=== PATIENT | female | born 1960 | race Caucasian/White ===

== ENCOUNTER 2019-03-15 06:14 | Day surgery (SDC) | payer OTHER ==
[2019-03-14 10:16] VITALS: BMI 28.3
[2019-03-15 07:28] LABS: URINE APPEARANCE CLEAR; URINE BILIRUBIN NEGATIVE (NEGATIVE); URINE COLOR YELLOW; URINE GLUCOSE (UA) NEGATIVE (NEGATIVE); URINE KETONE NEGATIVE (NEGATIVE); URINE LEUK ESTERASE NEGATIVE (NEGATIVE); URINE NITRITE NEGATIVE (NEGATIVE); URINE PROTEIN NEGATIVE (NEGATIVE); URINE UROBILINOGEN 0.2 mg/dL (0.2-1.0)
[2019-03-15] MEDS ORDERED: BUPIVACAINE HCL/PF 0.5% (5 MG/ML) 30 ML VIAL IJ ONE ×4 (07:34→08:24)
[2019-03-15 07:38] LABS: INR 1.01 (0.83-1.09); PROTHROMBIN TIME (PATIENT) 11.9 SEC (9.7-13.0)
[2019-03-15 07:41] LABS: ACTIVATED PTT 35.6 SECONDS (25.2-36.5)
[2019-03-15] MEDS ORDERED: SUCCINYLCHOLINE CHLORIDE 200 MG/10 ML SYRINGE ONE (07:50)
[2019-03-15] MEDS ORDERED: PROPOFOL 20 ML ONE ×3 (07:50)
[2019-03-15] MEDS ORDERED: MIDAZOLAM HCL 2 MG/2 ML SINGLE DOSE VIAL ONE (07:51)
[2019-03-15] MEDS ORDERED: LIDOCAINE HCL/PF 2% SDV 5ML VIAL ONE (07:52)
[2019-03-15] MEDS ORDERED: LIDOCAINE HCL 2% JELLY (5 ML/TUBE) ONE (07:53)
[2019-03-15] MEDS ORDERED: ONDANSETRON 4 MG/2 ML VIAL ONE (07:54)
[2019-03-15] MEDS ORDERED: KETOROLAC TROMETHAMINE 30 MG/1 ML VIAL ONE (07:54)
[2019-03-15] MEDS ORDERED: ceFAZolin SODIUM 1 GM VIAL ONE (07:54)
[2019-03-15] MEDS ORDERED: DEXAMETHASONE SOD PHOSPHATE 4 MG/1 ML VIAL ONE (07:54)
--- NOTE | 2019-03-15 08:06 | HP ---
[facility] - Chief Complaint Chief Complaint: right knee pain - Past Medical History Allergies/Adverse Reactions: Allergies Allergy/AdvReac Type Severity Reaction Status Date / Time No Known Drug Allergies Allergy Verified 03/15/19 07:20 - Current Medications Current Medications: Home Medications Medication Instructions Recorded Citalopram Hydrobromide 10 mg PO DAILY 03/14/19 [Citalopram HBr] Levothyroxine [Synthroid -] 112 mcg PO DAILY 03/14/19 Multivitamins [Multivit ([facility] 1 tab PO DAILY 03/14/19 Formulary)] Rosuvastatin Calcium [Crestor] 20 mg PO HS 03/14/19 Triamterene/Hydrochlorothiazid 1 each PO UTDICT 03/14/19 [Triamterene-Hctz 37.5-25 mg Tb] Tumeric 1 tab PO DAILY 03/14/19 Oxycodone HCl/Acetaminophen 1 tab PO Q6H #20 tablet MDD 4 03/15/19 [Percocet 5-325 mg Tablet] [facility] Physical Exam - Physical Examination Vital Signs: Vital Signs Period Temp Pulse Resp BP Sys/Daly Pulse Ox Last 24 Hr 97.5 F 62 20 141/85 98 General Appearance: Well Nourished, Well Developed, Alert & Oriented x3 ENT: Clear Lung: Normal air movement Heart: Regular rate & rhythm Extremities: Other (right knee- + swelling, + ttp, decr rom, + mcmurrays, nvi, MRI + mt) Neurological: Intact, Alert, Oriented [facility] Impression/Plan - Impression/Plan Impression: right knee internal derangement Operative Procedure: right knee arthroscopy Date to be Performed: 03/15/19
[2019-03-15] MEDS ORDERED: LIDOCAINE HCL 1%, 10 MG/ML (20ML VIAL) ONE (08:15)
[2019-03-15] MEDS ORDERED: GLYCOPYRROLATE 0.2 MG/1 ML VIAL ONE (08:24)
[2019-03-15] MEDS ORDERED: LIDOCAINE 1%-EPI 1:100,000 30 ML MDV IJ ONE (08:24)
[2019-03-15] MEDS ORDERED: ONDANSETRON 4 MG/2 ML VIAL IVPUSH PRN (08:46)
[2019-03-15] MEDS ORDERED: PROMETHAZINE HCL 25 MG/1 ML VIAL IVPUSH PRN (08:46)
[2019-03-15] MEDS ORDERED: oxyCODONE HCL 5 MG TABLET PO PRN ×2 (08:46)
[2019-03-15 11:26] VITALS: TEMP 98
[2019-03-15 11:29] VITALS: BP 138/80; PULSE 65
--- NOTE | 2019-03-15 12:49 | OP ---
Operative Note - Note: Operative Date: 03/15/19 ([facility]) Pre-Operative Diagnosis: right knee internal derangement Operation: right knee arthroscopy with PMM Post-Operative Diagnosis: Same as Pre-op Surgeon: Kory Ramirez Flagger: Juventino Reyes Anesthesia: General, Local Specimens Removed: shavings Estimated Blood Loss (mls): 5 Operative Report Dictated: Yes
--- NOTE | 2019-03-15 16:38 | OP ---
DATE OF OPERATION: 03/15/2019 PREOPERATIVE DIAGNOSIS: Internal derangement, right knee. POSTOPERATIVE DIAGNOSIS: Internal derangement, right knee. PROCEDURE: Arthroscopy, right knee, partial medial meniscectomy, and chondroplasty of medial femoral condyle. SURGICAL ATTENDING: Kory Ramirez MD ATHLETIC SCOUT: Juventino Reyes MD ANESTHESIA: General. CLOSURE: 4-0 nylon. COMPLICATIONS: None. CONDITION: To recovery room in stable condition. DESCRIPTION OF PROCEDURE: Patient was taken to the operating room on March 15, 2019. General anesthesia with LMA was administered by the anesthesiologist. Right lower extremity was prepped and draped in the usual sterile fashion. The medial and lateral infrapatellar portal sites were infiltrated with 1% Xylocaine with epinephrine. Both portals were then made with 15 blade followed by blunt trocar. The scope was placed in the lateral infrapatellar port up to suprapatellar pouch. Pouch was visualized to be clean. The medial and lateral gutters were visualized to be clean. The undersurface of the patella and trochlea were visualized to be intact. With valgus stress on the knee, the medial compartment was entered. The medial meniscus was visualized and probed and found to have a complex tear of its posterior horn, which was debrided back to smooth, stable meniscal tissue using meniscal biter and arthroscopic shaver. Medial femoral condyle was run and found to have slight grade 2 changes, and the loose articular cartilage was debrided using a shaver. Medial tibial plateau was found to be intact. At 90 degrees, the ACL was visualized and probed and found to be intact. In a figure-4 position, lateral compartment was entered. Lateral meniscus was visualized and probed and found to be intact. Lateral and femoral condyles were found to be intact as was the lateral tibial plateau. The knee was irrigated with copious amounts of irrigation. The portal was closed using 4-0 nylon. Prior to closure, 20 mL of 0.5% Marcaine was infused into the knee for postoperative analgesia. A sterile pressure dressing was placed over the knee. The patient was awakened from anesthesia and transferred to recovery in stable condition. No complications. Estimated blood loss negligible. Key [id number]
--- NOTE | 2019-03-18 17:48 | PATH ---
Surgical Pathology Report Patient Name: LIVE WILSON [facility]. Rec. #: [id number] /Age/Gender: 1960 (Age: 58) / F Account: [id number] Location: [facility] Taken: 03/15/2019 Received: 03/15/2019 Reported: 03/18/2019 Physicians: Kory Ramirez M.D. Specimen(s) Received SHAVINGS RIGHT KNEE Clinical History Right knee tear Final Diagnosis KNEE SHAVINGS, RIGHT, ARTHROSCOPY: FRAGMENTS OF CARTILAGE, DENSE FIBROCONNECTIVE TISSUE, ADIPOSE TISSUE, AND REACTIVE SYNOVIUM. Electronically Signed Tennille Houston M.D. Gross Description Received in formalin, labeled "right knee shavings," is a 2 x 1 x 0.7 cm. aggregate of luna-yellow soft tissue fragments. A territory sales representative portion is submitted in one cassette. MLSZ/03/15/2019 sanolga/03/15/2019
== END 2019-03-15 11:30 | disposition home or self-care (01) ==
LOC: JASU-SURG 06:14
PROVIDERS: ATTEND Orthopaedic Surgery
PROC: 0SBC4ZZ Excision of Right Knee Joint, Percutaneous Endoscopic Approach (ICD-10-PCS; 2019-03-15)
PROC: 0SBC4ZZ Excision of Right Knee Joint, Percutaneous Endoscopic Approach (ICD-10-PCS; principal; 2019-03-15 08:00)
DX: M23.321 Other meniscus derangements, posterior horn of medial meniscus, right knee (principal)
CPT/HCPCS: 29881; G0289; 36415; 81003; 85610; 85730; 88304-TC; 94760